=== PATIENT | female | born 1995 | race Caucasian/White ===

== ENCOUNTER 2016-07-22 09:00 | Emergency (ER) ==
[2016-07-22 09:11] VITALS: BP 147/90; TEMP 96.7; BMI 51.3
--- NOTE | 2016-07-22 10:37 | ED.PDOC ---
General ED Provider: Dr. JACOB PEREZ JR Chief Complaint: Tooth Problem Stated Complaint: Tooth broke off and pain to area, left upper back molar[End]1 week ago 96.7 88 18 98% 147/90 9/10 Advil, last taken 2 days ago left upper molar Fx left upper molar. Has been broken for months. Pain worse for past 3 days.[End]PATIENT NOT IN ROOM. DID NOT INFORM STAFF SHE WAS LEAVING.Jun 12: 51[End] Time Seen by Physician: 10:31 Mode of Arrival: Walk-In Information Source: Patient, Family Exam Limitations: No limitations Nursing and Triage Documentation Reviewed and Agree: No Review of Systems - Review Of Systems Constitutional: Reports: No symptoms Eyes: Reports: No symptoms Ears, Nose, Mouth, Throat: Reports: Mouth pain (left posteriro molar with fracture not well seen on exam note poor dental hygeine but teeth are generally intact) Respiratory: Reports: No symptoms Cardiac: Reports: No symptoms GI: Reports: No symptoms : Reports: No symptoms Musculoskeletal: Reports: No symptoms Skin: Reports: No symptoms Neurological: Reports: No symptoms Endocrine: Reports: No symptoms Hematologic/Lymphatic: Reports: No symptoms All Other Systems: Other Past Medical History - Past Medical History Previously Healthy: Yes Endocrine: Reports: None Cardiovascular: Reports: None Respiratory: Reports: None, Other (freqent ear issues) Hematological: Reports: None Gastrointestinal: Reports: None Genitourinary: Reports: None Neuro/Psych: Reports: None Musculoskeletal: Reports: None Cancer: Reports: None Last Menstrual Period: 2 weeks ago - Surgical History General Surgical History: Reports: None - Family History Family History: Reports: Unknown - Social History Smoking Status: Former smoker Hx Substance Use: No Alcohol Screening: None - Immunizations Tetanus Shot up to Date: No Physical Exam - Physical Exam Appearance: Well-appearing, Obese Pain Distress: Moderate Eyes: SAL, EOMI, Conjunctiva clear ENT: Ears normal, Nose normal, Erythema Neck: Supple Respiratory: Airway patent, Breath sounds clear, Breath sounds equal, Respirations nonlabored Cardiovascular: RRR, Pulses normal, No rub, No murmur GI/: Soft, Nontender, No masses, Bowel sounds normal, No Organomegaly Musculoskeletal: Normal strength, ROM intact, No edema, No calf tenderness Skin: Warm, Dry, Normal color Neurological: Sensation intact, Motor intact, Reflexes intact, Cranial nerves intact, Alert, Oriented Psychiatric: Affect appropriate, Mood appropriate Critical Care Note - Critical Care Note Total Time (mins): 0 Course - Course Vital Signs: Temp Pulse Resp BP Pulse Ox 07/22/16 09:01 96.7 F L 88 18 147/90 H 98 Departure - Departure Time of Disposition: 10:37 Disposition: HOME SELF-CARE Discharge Problem: Toothache Instructions: Dental Caries (ED), Toothache (ED) Condition: Good Pt referred to PMD for follow-up: Yes Additional Instructions: clean teeth three times a day, dry area and use dental max on open area to control pain deja VK for infection Naprosyn for pain [place] for pain not controlled follow up with dentist as scheduled(Jul 31) ears are congested would take antibistamine or antihistamine decongestant (Benadryl Benadryl cold and allergy Claritin, Claritin D and sudafed(PSE much less effective)-pseudoephedrine for one week and then as needed for congestions Prescriptions: Hydrocodone Bit/Acetaminophen [[place] 5-325] 1 - 2 tab PO Q6HR PRN #12 tablet PRN Reason: pain Naproxen [Naprosyn] 500 mg PO Q12HR PRN #30 tablet PRN Reason: PAIN Penicillin V Potassium 500 mg PO QID #28 tablet Allergies/Adverse Reactions: Allergies No Known Allergies Allergy (Unverified 07/22/16 09:06) Home Medications: Ambulatory Orders Hydrocodone Bit/Acetaminophen [[place] 5-325] 1 - 2 tab PO Q6HR PRN #12 tablet 09/06 Naproxen [Naprosyn] 500 mg PO Q12HR PRN #30 tablet 07/22/16 Penicillin V Potassium 500 mg PO QID #28 tablet 07/22/16
== END 2016-07-22 10:52 | disposition home or self-care (01) ==
LOC: ED 09:00
DX: K08.89 Other specified disorders of teeth and supporting structures (principal); K02.7 Dental root caries; S02.5XXA Fracture of tooth (traumatic), initial encounter for closed fracture
CPT/HCPCS: 99282

== ENCOUNTER 2017-12-03 15:58 | Outpatient (CLI) | END 2017-12-03 16:17 | disposition short-term general hospital (02) | LOC: AMBL 15:58 | PROVIDERS: ATTEND Internal Medicine | DX: F41.9 Anxiety disorder, unspecified (principal); F32.9 Major depressive disorder, single episode, unspecified ==

== ENCOUNTER 2017-12-17 12:40 | Outpatient (CLI) | END 2017-12-17 12:41 | disposition home or self-care (01) | LOC: RHC-LAB 12:40 | PROVIDERS: ATTEND Nurse Practitioner Family | DX: F41.1 Generalized anxiety disorder (principal); E66.9 Obesity, unspecified | CPT/HCPCS: 36415; 80053; 80061; 84443; 85025 ==

== ENCOUNTER 2017-12-23 10:47 | Emergency (ER) ==
[2017-12-23 10:57] VITALS: BP 136/89; TEMP 98.2; BMI 54.6
[2017-12-23] MEDS ORDERED: ANTIVERT PO STA (11:05)
--- NOTE | 2017-12-23 11:17 | ED.PDOC ---
General ED Provider: Dr. JULISSA HOUSER Chief Complaint: Dizziness Stated Complaint: pt has complaints of dizziness and palpitation for the past 2 or 3 days. pt states that she went to other ER wiht c/o anxiety a week ago. Pt states that her PCP prescribed Effexor for her anxiety and she experienced dizziness and palpitation 3 days after taking the medication so she d/c mediciations 2 or 3 days ago. 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 Her stepfather helps her to remember certain events Time Seen by Physician: 11:00 Mode of Arrival: Walk-In Information Source: Patient Exam Limitations: No limitations, Other (not a good historian herself due to memory loss ) Primary Care Provider: SELINA HAYES Nursing and Triage Documentation Reviewed and Agree: Yes Reviewed sepsis parameters & appropriate labs ordered?: Yes System Inflammatory Response Syndrome: Not Applicable Sepsis Protocol: For patient's 13 years and over: Temp is 96.8 and below OR 101 and greater Pulse >90 BPM Resp >20/minute Acutely Altered Mental Status Are patient's symptoms suggestive of a new infection, such as: -Pneumonia -Skin, Soft Tissue -Endocarditis -UTI -Bone, Joint Infection -Implantable Device -Acute Abdominal Infection -Wound Infection -Meningitis -Blood Stream Catheter Infection -Unknown Neurological Complaint Exam - Dizziness Complaint/Exam Last Known Well: 8 days ago Onset: Gradual Duration: 3 days Symptoms Are: Still present Timing: Intermittent Episodes Lasting: Hours Initial Severity: Moderate Current Severity: Moderate Character: Reports: Head spinning, Dizzy, Unable to describe Aggravating: Reports: None Alleviating: Reports: None, Lying down Associated Signs and Symptoms: Reports: Nausea. Denies: Vomiting, Diaphoresis, Tinnitus, Chest pain, Short of air, Palpitations, Unsteady gait, GI blood loss, Visual changes, Decreased oral intake, Change in medication, Change in diet, OTC meds, Loss of balance Cardiac Risk Factors: Reports: None CVA Risk Factors: Reports: None Related Surgical History: Reports: None JVD Present: No Carotid Bruit Present: No Glascow Coma Scale (see protocol): 15 Nystagmus Present: No Gag Reflex Present: Yes Meningeal Signs Positive: No Focal Weakness: Present: None Focal Sensory Loss: Present: None Gait: Normal Differential Diagnoses: Hypovolemia, Medication reaction, Metabolic abnormalities, Vasovagal reaction Quality Indicators for Cardiac Chest Pain: EKG in 10min. Quality Indicators for AMI: EKG in 10min. Quality Indicator For Non-Traumatic Chest Pain/Syncope: EKG Performed Review of Systems - Review Of Systems Constitutional: Reports: No symptoms Eyes: Reports: No symptoms Ears, Nose, Mouth, Throat: Reports: No symptoms Respiratory: Reports: No symptoms Cardiac: Reports: No symptoms GI: Reports: No symptoms : Reports: No symptoms Musculoskeletal: Reports: No symptoms Skin: Reports: No symptoms Neurological: Reports: No symptoms Endocrine: Reports: No symptoms Hematologic/Lymphatic: Reports: No symptoms All Other Systems: Reviewed and Negative Past Medical History - Past Medical History Previously Healthy: Yes Endocrine: Reports: None Cardiovascular: Reports: None Respiratory: Reports: None, Other (freqent ear issues) Hematological: Reports: None Gastrointestinal: Reports: None Genitourinary: Reports: None Neuro/Psych: Reports: None Musculoskeletal: Reports: None Cancer: Reports: None Last Menstrual Period: november --first - Surgical History General Surgical History: Reports: None - Family History Family History: Reports: Unknown - Social History Smoking Status: Former smoker Hx Substance Use: No Alcohol Screening: None Physical Exam - Physical Exam Appearance: Well-appearing, No pain distress, Well-nourished Eyes: SAL, EOMI, Conjunctiva clear ENT: Ears normal, Nose normal, Oropharynx normal Respiratory: Airway patent, Breath sounds clear, Breath sounds equal, Respirations nonlabored Cardiovascular: RRR, Pulses normal, No rub, No murmur GI/: Soft, Nontender, No masses, Bowel sounds normal, No Organomegaly Musculoskeletal: Normal strength, ROM intact, No edema, No calf tenderness Skin: Warm, Dry, Normal color Neurological: Sensation intact, Motor intact, Reflexes intact, Cranial nerves intact, Alert, Oriented Psychiatric: Affect appropriate, Mood appropriate 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 - 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 Rate: Normal Rhythm: Sinus Ectopy: None - EKG 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 Rate: Normal Rhythm: Sinus Ectopy: None Brooks: NL ST Segment: Normal EKG Comparison: No significant changes Critical Care Note - Critical Care Note Total Time (mins): 0 Course - Course Hematology/Chemistry: 12/23/17 11:32 12/23/17 11:32 Orders, Labs, Meds: Lab Review 12/23/17 12/23/17 12/23/17 11:00 11:00 11:32 WBC 11.14 H RBC 4.64 Hgb 11.1 L Hct 35.4 L MCV 76.3 L MCH 23.9 L MCHC 31.4 L RDW Coeff of Reed 17.9 H Plt Count 280 Immature Gran % (Auto) 1.0 Neut % (Auto) 71.0 Lymph % (Auto) 18.1 Sunflower % (Auto) 6.9 Eos % (Auto) 2.6 Baso % (Auto) 0.4 Immature Gran # (Auto) 0.1 Neut # (Auto) 7.9 H Lymph # (Auto) 2.0 Sunflower # (Auto) 0.8 Eos # (Auto) 0.3 Baso # (Auto) 0.0 Sodium Potassium Chloride Carbon Dioxide Anion Gap BUN Creatinine Estimated GFR (MDRD) BUN/Creatinine Ratio Glucose Calcium Total Bilirubin AST ALT Alkaline Phosphatase Troponin I Total Protein Albumin Globulin Albumin/Globulin Ratio TSH Free T4 Urine Color Yellow Urine Clarity Clear Urine pH 6.5 Ur Specific [place] 1.020 Urine Protein Negative Urine Glucose (UA) Negative Urine Ketones Negative Urine Blood 2+ Urine Nitrite Negative Urine Bilirubin Negative Urine Urobilinogen 0.2 Ur Leukocyte Esterase 1+ Urine Microscopic RBC 0-2 Urine Microscopic WBC 0-2 Ur Squamous Epith Cells 2-5 Urine Bacteria Trace Urine Test Negative 12/23/17 11:32 WBC RBC Hgb Hct MCV MCH MCHC RDW Coeff of Reed Plt Count Immature Gran % (Auto) Neut % (Auto) Lymph % (Auto) Sunflower % (Auto) Eos % (Auto) Baso % (Auto) Immature Gran # (Auto) Neut # (Auto) Lymph # (Auto) Sunflower # (Auto) Eos # (Auto) Baso # (Auto) Sodium 134 L Potassium 4.3 Chloride 102 Carbon Dioxide 26 Anion Gap 10.3 BUN 10 Creatinine 0.65 Estimated GFR (MDRD) 112.00 BUN/Creatinine Ratio 15.38 Glucose 93 Calcium 9.4 Total Bilirubin 0.5 AST 12 L ALT 11 L Alkaline Phosphatase 77 Troponin I < 0.0100 Total Protein 7.8 Albumin 3.1 L Globulin 4.7 Albumin/Globulin Ratio 0.66 TSH 2.356 Free T4 1.01 Urine Color Urine Clarity Urine pH Ur Specific [place] Urine Protein Urine Glucose (UA) Urine Ketones Urine Blood Urine Nitrite Urine Bilirubin Urine Urobilinogen Ur Leukocyte Esterase Urine Microscopic RBC Urine Microscopic WBC Ur Squamous Epith Cells Urine Bacteria Urine Test Orders Category Date Time Status EKG-(ED ONLY) Stat CARDIO 12/23/17 11:11 Completed CBC W/ AUTO DIFF Stat LAB 12/23/17 11:32 Completed COMPREHENSIVE METABOLIC PANEL Stat LAB 12/23/17 11:32 Completed FREE T4 (FREE THYROXINE) Stat LAB 12/23/17 11:32 Completed THYROID STIMULATING HORMONE Stat LAB 12/23/17 11:32 Completed TROPONIN I Stat LAB 12/23/17 11:32 Completed URINALYSIS C & S IF INDICATED Stat LAB 12/23/17 11:00 Completed URINE Stat LAB 12/23/17 11:00 Completed Meclizine HCl [Antivert] MEDS 12/23/17 11:05 Discontinued 25 mg PO ONCE STA Ondansetron HCl/Pf [Zofran 4 mg/2 ml] MEDS 12/23/17 11:23 Discontinued 4 mg IM ONCE STA CT HEAD W/O CONTRAST Stat RADS 12/23/17 11:03 Completed Medications Discontinued Medications Generic Name Dose Route Start Last Admin Trade Name Freq PRN Reason Stop Dose Admin Meclizine HCl 25 mg 12/23/17 11:05 Antivert PO 12/23/17 11:06 ONCE STA Ondansetron HCl 4 mg 12/23/17 11:23 Zofran 4 Mg/2 Ml IM 12/23/17 11:24 ONCE STA Vital Signs: Temp Pulse Resp BP Pulse Ox 12/23/17 10:47 98.2 F 93 H 20 136/89 99 Departure - Departure Time of Disposition: 12:51 Disposition: HOME SELF-CARE Discharge Problem: Dizziness Instructions: Dizziness (ED) Condition: Good Pt referred to PMD for follow-up: Yes IPMP verified?: No Additional Instructions: Please call your Family Physician as soon as possible to schedule a follow-up appointment. Allergies/Adverse Reactions: Allergies No Known Allergies Allergy (Verified 12/23/17 10:56) Disposition Discussed With: Patient
[2017-12-23] MEDS ORDERED: ZOFRAN 4 MG/2 ML IM STA (11:23)
--- NOTE | 2017-12-23 12:10 | CT ---
EXAM: CT BRAIN HISTORY: Dizziness TECHNIQUE: CT brain without intravenous contrast. 5-mm axial sections with Reformations. COMPARISON: None FINDINGS: Brain is unremarkable without evidence of hemorrhage or large vessel distribution recent ischemic in farction. There is no suggestion of acute hydrocephalus or subdural fluid collection. No mass or ma ss effect. Cranium is within normal limits. Poor aeration of the mastoid processes may represent effusions. Vis ualized paranasal sinuses are clear. IMPRESSION: 1. No acute intracranial process. 2. Poor aeration of the mastoid processes may represent effusions.
== END 2017-12-23 13:14 | disposition home or self-care (01) ==
LOC: ED 10:47
DX: R42 Dizziness and giddiness (principal)
CPT/HCPCS: 36415; 80053; 81001; 81025; 84439; 84443; 84484; 85025; 93005; 93010; 96372; 99283

== ENCOUNTER 2018-01-08 16:11 | Outpatient (CLI) | END 2018-01-08 16:25 | disposition short-term general hospital (02) | LOC: AMBL 16:11 | PROVIDERS: ATTEND Emergency Medicine | DX: R42 Dizziness and giddiness (principal) ==

== ENCOUNTER 2018-01-21 22:23 | Outpatient (CLI) | END 2018-01-21 22:24 | disposition home or self-care (01) | LOC: AMBL 22:23 | PROVIDERS: ATTEND Family Medicine | DX: R51 Headache (principal); R00.0 Tachycardia, unspecified; F41.9 Anxiety disorder, unspecified ==